=== PATIENT | female | born 1950 | race Caucasian/White ===

== ENCOUNTER → 2021-05-26 15:31 | Outpatient (CLI) | payer MEDICARE, SELFPAY ==
[2021-05-26 17:06] LABS: Thyroid Stim Hormone (TSH) 1.27 uIU/mL (0.358-3.74)
[2021-05-28 08:51] LABS: Thyroid Peroxidase AB 28 IU/mL (0-34)
== END ==
PROVIDERS: PCP Family Medicine; Referring Provider Internal Medicine Endocrinology, Diabetes & Metabolism; Visit Provider Internal Medicine Endocrinology, Diabetes & Metabolism
DX: I48.91 Unspecified atrial fibrillation (principal); Z86.39 Personal history of other endocrine, nutritional and metabolic disease
CPT/HCPCS: 36415; 84443; 86376